=== PATIENT | female | born 1945 | race Caucasian/White ===

== ENCOUNTER 2017-11-07 22:25 | Emergency (ER) | payer OTHER ==
[2017-11-07] MEDS ORDERED: CEPHALEXIN 500 MG CAP PO ONE (23:12)
[2017-11-07] MEDS ORDERED: TDAP ADULT 0.5 ML INJ (BOOSTRIX) IM ONE (23:12)
--- NOTE | 2017-11-07 23:12 | EDPHY ---
H & P Time Seen by Provider: 11/07/17 22:46 HPI/ROS: CHIEF COMPLAINT: Laceration right hand HISTORY OF PRESENT ILLNESS: 72-year-old [id number] female arrives via private vehicle complaining of acute laceration no right hand hypo thenar eminence after she slipped and landed on the ground impacting sharp piece of plastic. No broken glass or broken objects. No paresthesia. Occurred shortly prior to arrival. PRIMARY CARE PROVIDER: REVIEW OF SYSTEMS: A ten point review of systems was performed and is negative with the exception of the items mentioned in the HPI PHYSICAL EXAM (Prior to examination, patient consented to physical exam, hands were washed and my usual and customary physical exam procedures followed) 1) GENERAL: Well-developed, well-nourished, alert and oriented. Appears to be in no acute distress. 2) HEAD: Normocephalic 3) HEENT: sclera anicteric 4) LUNGS: Breathing comfortably. 5) SKIN: Right hand hypo thenar eminence 3.5 cm well-demarcated laceration. Does not involve muscle belly. 6) MUSCULOSKELETAL: Flexor extensor function distally are intact no deficits. 7) NEUROLOGIC: Full sensation distally Smoking Status: Former smoker Constitutional: Initial Vital Signs Temperature (C) 36.8 C 11/07/17 22:42 Heart Rate 63 11/07/17 22:42 Respiratory Rate 16 11/07/17 22:42 Blood Pressure 125/71 H 11/07/17 22:42 O2 Sat (%) 94 11/07/17 22:42 O2 Delivery Mode Room Air Allergies/Adverse Reactions: No Known Allergies Allergy (Unverified 11/07/17 22:46) Home Medications: Medication Instructions Recorded Cephalexin [Keflex] 500 mg PO TID 5 Days cap 11/07/17 MDM/Departure - MDM Procedures: Procedure: Laceration repair. I explained the indications, risks and benefits for both laceration repair and anesthetic administration. Verbal consent was obtained from the patient. The laceration on the right hypo thenar eminence was anesthetized using 0.5% bupivicaine with epinephrine. After anesthetic administered the patient was observed for a period of time and had no apparent adverse effects. The wound was cleaned, prepped, draped in normal sterile fashion and explored to its base. No foreign body seen, no foreign bodies palpated. There were no deep structures involved. No tendon injury was identified. The wound was repaired with 8 simple interrupted 5 O Prolene sutures . The wound repair was complex. The procedure was performed by myself. Patient has been informed that scarring will occur, although efforts have been made to minimize this. Medications Given: Discontinued Medications Cephalexin HCl (Keflex) 500 mg PO EDNOW ONE PRN Reason: Protocol Stop: 11/07/17 23:13 Last Admin: 11/07/17 23:21 Dose: 500 mg Diphtheria/Tetanus/Acell Pertussis (Boostrix) 0.5 ml IM .ONCE ONE Stop: 11/07/17 23: Last Admin: 11/07/17 23:21 Dose: 0.5 ml ED Course/Re-evaluation: Care of patient under supervision of secondary supervising physician Dr Garcia. - Depart Disposition: Home, Routine, Self-Care Clinical Impression: Laceration of right hand Qualifiers: Encounter type: initial encounter Foreign body presence: without foreign body Qualified Code(s): S61.411A - Laceration without foreign body of right hand, initial encounter Condition: Good Instructions: Cephalexin (By mouth), Laceration (ED) Additional Instructions: Return to the ER if you develop redness, swelling, discharge, warmth to the wound, red streaks going up your arm, or any other symptoms that concern you. Prescriptions: Cephalexin [Keflex] 500 mg PO TID 5 Days cap Referrals: Hannah Gomez MD [Primary Care Provider] - As per Instructions
[2017-11-07 23:49] VITALS: BP 124/82; PULSE 67; RESP 18; TEMP 98.4; O2SAT 98
== END 2017-11-07 23:48 | disposition home or self-care (01) ==
PROC: 0HQFXZZ Repair Right Hand Skin, External Approach (ICD-10-PCS; principal; 2017-11-07)
DX: S61.411A Laceration without foreign body of right hand, initial encounter (principal); Z23 Encounter for immunization; Z87.891 Personal history of nicotine dependence; W01.0XXA Fall on same level from slipping, tripping and stumbling without subsequent striking against object, initial encounter

== ENCOUNTER → 2019-01-24 | Outpatient (CLI) | payer OTHER | LOC: FIMAGING 13:32 | PROVIDERS: ATTEND Family Medicine | DX: Z12.31 Encounter for screening mammogram for malignant neoplasm of breast (principal); Z13.820 Encounter for screening for osteoporosis; M81.0 Age-related osteoporosis without current pathological fracture ==